=== PATIENT | female | born 1955 | race Caucasian/White ===

== ENCOUNTER → 2016-05-26 | Outpatient (CLI) | payer BC ==
[~2016-05-26] MED LIST: CLTP PO; MULT-506 PO; TAMO20TA9 PO
--- NOTE | 2016-05-26 10:37 | DIAGNOSTIC IMAGING REPORT ---
L-SPINE MIN 4 VIEWS ROUTINE CLINICAL HISTORY: LOW BACK PAIN COMPARISON STUDY: No previous studies for comparison. FINDINGS: There is a mild lumbar dextroscoliosis. There are 5 lumbar type vertebral bodies present. No fractures or subluxations are visualized. There is mild lower lumbar disc space narrowing. IMPRESSION: Mild degenerative change. Mild scoliosis. No acute fractures identified. Electronically signed by: Brenton Lee M.D. 05/26/2016 10:34 AM Dictated Date/Time: 05/26/2016 10:34 AM
--- NOTE | 2016-05-26 10:37 | DIAGNOSTIC IMAGING REPORT ---
SACRUM COCCYX MIN 2 VIEWS CLINICAL HISTORY: LOW BACK PAIN COMPARISON STUDY: No previous studies for comparison. FINDINGS: No fractures are visualized. There is no evidence for SI joint erosive disease. There is no SI joint fusion. IMPRESSION: No fractures identified. Electronically signed by: Brenton Lee M.D. 05/26/2016 10:35 AM Dictated Date/Time: 05/26/2016 10:34 AM
--- NOTE | 2016-05-26 10:38 | DIAGNOSTIC IMAGING REPORT ---
LEFT HIP UNILATERAL 2 VIEWS CLINICAL HISTORY: Left hip pain COMPARISON: None. DISCUSSION: No fractures or dislocations are visualized. There are no erosive or destructive changes. There is a left pelvic basin calcification which while nonspecific likely represents a phlebolith. IMPRESSION: Normal left hip for age. Electronically signed by: Brenton Lee M.D. 05/26/2016 10:36 AM Dictated Date/Time: 05/26/2016 10:35 AM
== END | disposition home or self-care (01) ==
LOC: C.RADBC 09:55
PROVIDERS: ATTEND Physician Assistant
DX: M54.5 Low back pain (principal); M25.552 Pain in left hip; M51.36 Other intervertebral disc degeneration, lumbar region; M41.9 Scoliosis, unspecified

== ENCOUNTER → 2017-01-09 | Outpatient (CLI) | payer BC ==
[2017-01-09 17:46] LABS: ALT/SGPT 36 U/L (12-78); AST/SGOT 23 U/L (15-37); BLOOD UREA NITROGEN 15 mg/dl (7-18); BUN/CREATININE RATIO 21.3 (10-20); CALCIUM 8.8 mg/dl (8.5-10.1); CARBON DIOXIDE 27 mmol/L (21-32); CHLORIDE 108 mmol/L (98-107); CREATININE 0.71 mg/dl (0.60-1.20); GLUCOSE 92 mg/dl (70-99); SODIUM 140 mmol/L (136-145)
[2017-01-09 17:48] LABS: ALB/GLOB RATIO 0.9 (0.9-2); ALKALINE PHOSPHATASE 92 U/L (45-117)
== END | disposition home or self-care (01) ==
LOC: C.LABBFT 14:54
PROVIDERS: ATTEND Physician Assistant
DX: R00.2 Palpitations (principal)

== ENCOUNTER → 2017-01-10 | Outpatient (CLI) | payer BC ==
[~2017-01-10] MED LIST changes: +GADAVIST IV PRN
--- NOTE | 2017-01-10 12:34 | DIAGNOSTIC IMAGING REPORT ---
LUMBAR SPINE COMBINATION CLINICAL HISTORY: 61 years-old Female with LOW BACK PAIN. Acute low back pain with radiation into the left leg. Associated numbness and tingling. History of breast cancer. Fall greater than 6 months ago COMPARISON: Sacrum and coccyx radiographs 05/26/2016, lumbar spine radiographs 05/26/2016 TECHNIQUE: Multiplanar, multi sequence MRI of the lumbar spine was performed both with and without the use of 7 mL Gadavist FINDINGS: The large [id number] vp integrity localizer images demonstrate an enhancing heterogeneous T2 hyperintense lesion within the central uterus with distention of the endometrial cavity measuring up to 3.9 x 2.2 cm as seen on image 4 series 8. No acute intra-abdominal or paraspinal abnormality identified. No aortic aneurysm or adenopathy identified on these images. There is mild bone marrow edema noted involving the right pedicle and facets on the right at L4-L5. Alignment is satisfactory. T12-L1: No central canal or neural foraminal stenosis. L1-L2: Mild intervertebral disc space narrowing with mild spondylitic spurring and facet arthrosis. No central canal or foraminal narrowing. L2-L3: Mild intervertebral disc space narrowing with posterior spondylitic spurring, ligamentum flavum thickening and mild to moderate facet arthrosis. Circumferential annular disc bulge is also noted. There is mild central canal and mild bilateral inferior foraminal narrowing. L3-L4: Moderate intervertebral disc space narrowing with posterior spondylitic spurring, circumferential annular disc bulge, ligamentum flavum thickening, moderate left and mild right facet arthrosis. AP dimension of the thecal sac is narrowed to 8 mm resulting in mild to moderate central canal and mild bilateral foraminal stenosis L4-L5: Moderate intervertebral disc space narrowing with mild posterior spondylitic spurring, ligament of flavum thickening and moderate bilateral facet arthrosis. Circumferential annular disc bulge is noted in conjunction with a large broad-based central disc protrusion which measures up to 1.6 x 0.6 cm in AP and transverse dimension. There is mild peripheral enhancement surrounding the disc protrusion as seen on image 19 series 9. Thecal sac is narrowed to 5 mm in AP dimension resulting in severe central canal, and moderate right foraminal narrowing. No significant left foraminal stenosis. L5-S1: Mild intervertebral disc space narrowing and spondylitic spurring without significant central canal or foraminal narrowing. IMPRESSION: 1. Heterogeneously enhancing mass of the central uterus distends the endometrial cavity measuring up to 3.9 cm and is very suspicious for endometrial carcinoma. Correlation with gynecologic consultation and tissue sampling recommended. 2. At L4-L5 there is moderate intervertebral disc space narrowing with posterior spondylitic spurring, ligamentum flavum thickening and moderate bilateral facet arthrosis with circumferential annular disc bulge and large central broad-based disc protrusion which causes severe central canal and moderate right foraminal narrowing. 3. Moderate intervertebral disc space narrowing with posterior spondylitic spurring, ligamentum flavum thickening and facet arthrosis at L3-L4 causes mild to moderate central canal narrowing. 4. Mild central canal stenosis at L2-L3. The above report was generated using voice recognition software. It may contain grammatical, syntax or spelling errors. Electronically signed by: Sha Sloan M.D. 01/10/2017 12:33 PM Dictated Date/Time: 01/10/2017 11:28 AM
== END | disposition home or self-care (01) ==
LOC: C.MRIBC 10:28
PROVIDERS: ATTEND Physician Assistant
DX: M48.061 Spinal stenosis, lumbar region without neurogenic claudication (principal); N85.8 Other specified noninflammatory disorders of uterus

== ENCOUNTER → 2017-01-11 | Outpatient (CLI) | payer BC ==
[~2017-01-11] MED LIST changes: -GADAVIST IV PRN
--- NOTE | 2017-01-11 11:09 | DIAGNOSTIC IMAGING REPORT ---
PELVIC COMPLETE NON OB CLINICAL HISTORY: R93.8 Abnormal [id number] ABNORMAL MRI COMPARISON STUDY: MRI 01/10/2017 FINDINGS: The uterus measured 10.0 cm.. The endometrial stripe measured complex endometrium with rather significant thickening to 5 cm. Superior to represent the MRI finding of a potential endometrial masslike process.. The right ovary measured not well seen possibly secondary atrophic change. The left ovary measured not well seen possibly secondary to atrophic change. There is no ultrasonographic evidence of ovarian torsion. It should be noted that ovarian torsion can be present with normal Doppler ultrasonographic findings. There was no evidence of pathologic free pelvic fluid. IMPRESSION: 1. Endometrial thickening to 5 cm most likely representing endometrial hyperplasia/neoplasia versus the MRI findings of endometrial neoplasm. 2. Ultrasound does not differentiate between thickened endometrium and potential masslike lesion. Nevertheless, mass lesion is not excluded. 3. BROADCAST METEOROLOGIST follow-up is recommended to exclude a neoplastic process. The above report was generated using voice recognition software. It may contain grammatical, syntax or spelling errors. Electronically signed by: Omega Douglas M.D. 01/11/2017 11:07 AM Dictated Date/Time: 01/11/2017 11:05 AM
== END | disposition home or self-care (01) ==
LOC: C.ULTRBC 09:53
PROVIDERS: ATTEND Physician Assistant
DX: R93.8 Abnormal findings on diagnostic imaging of other specified body structures (principal)

== ENCOUNTER → 2017-01-12 | Outpatient (CLI) | payer BC ==
[~2017-01-12] MED LIST changes: -MULT-506 PO
== END | disposition home or self-care (01) ==
LOC: C.PATHSPEC 11:37
PROVIDERS: ATTEND Obstetrics & Gynecology
DX: R93.8 Abnormal findings on diagnostic imaging of other specified body structures (principal); Z79.810 Long term (current) use of selective estrogen receptor modulators (SERMs)

== ENCOUNTER → 2017-02-19 | Outpatient (CLI) | payer BC ==
[~2017-02-19] MED LIST changes: +CALC500C70 PO; -CLTP PO; +GABA-112 PO
[2017-02-19 12:15] LABS: HEMATOCRIT 43.7 % (37-47); HEMOGLOBIN 14.5 g/dL (12.0-16.0); MEAN CELL VOLUME 97.1 fL (80-100); MEAN CORPUSCULAR HEMOGLOBIN 32.2 pg (25-34); MEAN CORPUSCULAR HGB CONC 33.2 g/dl (32-36); MEAN PLATELET VOLUME 10.2 fL (7.4-10.4); PLATELET COUNT 217 K/uL (130-400); RED CELL DISTRIBUTION WIDTH CV 13.1 % (11.5-14.5); RED CELL DISTRIBUTION WIDTH SD 46.1 fL (36.4-46.3); WHITE BLOOD COUNT 8.31 K/uL (4.8-10.8)
== END | disposition home or self-care (01) ==
LOC: C.LAB1850 11:01
PROVIDERS: ATTEND Obstetrics & Gynecology
DX: R93.8 Abnormal findings on diagnostic imaging of other specified body structures (principal)

== ENCOUNTER → 2017-02-21 | Day surgery (SDC) | payer BC ==
[2017-01-19 10:34] VITALS: Ht 157.5 cm; Wt 72.0 kg
[~2017-02-21] VITALS: Ht 157.5 cm; Wt 72.0 kg
[~2017-02-21] MED LIST changes: +ATROPINE SULFATE 0.1 MG/ML 5ML SYR IV PRN; +DEXAMETHASONE SOD INJ 4 MG/ML VIAL ONE; +EpHEDrine SULFATE INJ 50 MG/ML AMP IV PRN; +FENTANYL CITRATE INJ 50 MCG/1 ML 2 ML VIAL IV PRN; +FENTANYL CITRATE INJ 50 MCG/1 ML 2 ML VIAL ONE; +IBUPROFEN 600 MG TAB PO PRN; +KETOROLAC TROMETHAMINE 30 MG/ML VIAL IV. PRN; +LACTATED RINGER'S 1000ML 1,000 ML IV SCH; +LIDOCAINE HCL 2% 2 ML VIAL (20MG/ML) ONE; +MIDAZOLAM HCL 1 MG/ML 2ML VIAL ONE; +ONDANSETRON INJ 2 MG/ML 2 ML VIAL IV PRN; +ONDANSETRON INJ 2 MG/ML 2 ML VIAL ONE; +OXYCODONE/ACETAMINOPHEN 5-325 TAB PO PRN; +PROPOFOL IV EMULSION 10 MG/ML 20 ML VIAL IV ONE; +SODIUM CHLORIDE 0.9% 1000ML 1,000 ML IV SCH
--- NOTE | 2017-02-21 12:52 | History & Physical Bridge - [place] ---
H&P Re-Evaluation Bridge Note: I have examined the patient, reviewed the History & Physical and in the interval since the performance of the History & Physical I have noted the following changes of clinical significance: No changes noted
--- NOTE | 2017-02-21 13:42 | [facility] Post Operative Brief Note ---
Immediate Operative Summary Operative Date Feb 21, 2017. Pre-Operative Diagnosis Thickened Endometrium, Use of tamoxifen Post-Operative Diagnosis Same Procedure(s) Performed Dilatation And Curettage, Hysteroscopy, Polypectomy, Myosure Surgeon Dr. Leonides Ren Tool Design Checker Surgeon(s) None Estimated Blood Loss 1 mL Findings uterus sounds to 9-10cm. cavity with at least one obvious polyp, possible areas of calcifications, possible myoma. left tubal ostia possible seen. right tubal ostia obscured. saline fluid deficit 515cc. large sample in myosure sock, minimal curettings. Fluids (cc crystalloids) 600 Specimens A. Endometrial Curettings and Polyp Drains none Anesthesia general Complication(s) None Disposition Recovery Room / PACU
--- NOTE | 2017-02-21 13:44 | Discharge Instructions ---
Discharge Instructions Date of Service Feb 21, 2017. Admission Reason for Admission: Thickened Endometrium Discharge Discharge Diagnosis / Problem: after srugery Discharge Goals Goal(s): Routine recovery after surgery Activity Recommendations Activity Limitations: as noted below . Instructions / Follow-Up Instructions / Follow-Up ACTIVITY RECOMMENDATIONS: * Avoid tampons, douching, hot tubs, pools, and intercourse until bleeding has stopped. * May shower as usual. * No strenuous activity for 24-48 hours. After 24-48 hours, you may do anything you feel like doing (driving and sports are okay). SPECIAL CARE INSTRUCTIONS: Special Diet: * Mild nausea may occur in the immediate post-operative period. * Take clear liquids such as tea, cola or bouillon until all nausea has subsided; you may then resume your normal diet. Special Care: * Light bleeding and vaginal spotting can last from a few days to 3-4 weeks. Call your doctor if bleeding becomes heavier than the heaviest part of your period. * Check your temperature twice a day for one week. If it goes above 100.4 degrees Fahrenheit (38.0 Celsius), notify your doctor. * Call your doctor's office for an appointment for 2-4 weeks after your surgery. FOLLOW-UP VISIT: Call your doctor's office for an appointment for 2-4 weeks after your surgery. Current Hospital Diet Patient's current hospital diet: Discharge Diet Recommended Diet: Regular Diet Procedures Procedures Performed: Dilatation And Curettage, Hysteroscopy, Polypectomy, Myosure Pending Studies Studies pending at discharge: yes List of pending studies: pathology Medical Emergencies . Who to Call and When: Medical Emergencies: If at any time you feel your situation is an emergency, please call 911 immediately. . Non-Emergent Contact Non-Emergency issues call your: [employer] . . "Provider Documentation" section prepared by Kimberly Ren. . VTE Core Measure Inpt VTE Proph given/why not?: Treatment not indicated
--- NOTE | 2017-02-21 14:00 | [facility] Operative Report ---
Operative Report Operative Date Feb 21, 2017. Pre-Operative Diagnosis Thickened Endometrium, Use of tamoxifen Post-Operative Diagnosis Same Procedure(s) Performed Dilatation And Curettage, Hysteroscopy, Polypectomy, Myosure Surgeon Dr. Leonides Ren Key Account Representative Surgeon(s) None Estimated Blood Loss 1 mL Findings Uterus sounds to 9-10 cm. Cavity width at least one obvious polyp. Other areas appear calcified and possibly consistent with myomas. Left tubal ostia somewhat visible. The right tubal ostia obscured. Large sample within myosure sock. Minimal curettings. Saline hysteroscopic fluid deficit 515 cc. Fluids (cc crystalloids) 600 Specimens A. Endometrial Curettings and Polyp Drains none Anesthesia Gen. Complication(s) None Disposition Recovery Room / PACU Indications 61-year-old with history of breast cancer on tamoxifen who underwent an MRI for other reasons and incidental finding of thickened endometrium. She underwent an office endometrial biopsy that did show benign tissue however fragment of polyp suggested. She was counseled about further evaluation with D&C hysteroscopy and likely polypectomy. She presents for that today. Description of Procedure The patient was taken to the operating room and identified. After adequate general anesthesia was obtained she was placed in the dorsolithotomy position and prepped and draped in the usual sterile fashion. The bladder was drained under sterile conditions for clear yellow urine. A weighted speculum and anterior retractor were placed to visualize the cervix. The cervix was grasped on its anterior lip with an Allis clamp. The cervix was sequentially dilated using Hegar dilators to 23. The myosure hysteroscope was readied with saline media. It was gently placed through the cervical os into the uterine cavity with the findings as noted above. The myosure device was then used to clear the uterus of its contents. The hysteroscope was removed and the uterus was curettaged to a gritty consistency. All specimens were sent. Subsequent to removal of tissue, visualization within the cavity was poor. The diagnostic hysteroscope was used to visualize the cavity which again showed evidence of removal of the polyp that was previously seen and otherwise cavity consistent with atrophy. The hysteroscope was removed and the uterus was further cleared of its contents with a brief curettage to gritty consistency. Cavity seemed smooth with no evidence of remaining lesions. At this point the procedure was terminated. All instruments were removed. She was returned to the supine position and awoken from anesthesia. She was transferred to the recovery room in stable condition. Sponge lap and needle counts were correct 2. I attest to the content of the Intraoperative Record and any orders documented therein. Any exceptions are noted below.
[2017-02-21 14:23] VITALS: TEMP 36.7
[2017-02-21 14:50] VITALS: BP 131/84; PULSE 72; O2SAT 97
--- NOTE | 2017-02-21 14:53 | Anesthesia Progress Nt - [facility] ---
Anesthesia Post Op Note Date & Time Feb 21, 2017 at 14:53 Vital Signs Pain Intensity: 0 Vital Signs Past 12 Hours Date Time Temp Pulse Resp B/P (MAP) Pulse Ox O2 Delivery O2 Flow Rate FiO2 02/21/17 14:50 72 18 131/84 (100) 97 Room Air 02/21/17 14:23 36.7 72 18 138/83 (101) 96 Room Air 02/21/17 14:16 71 27 02/21/17 14:16 72 27 95 02/21/17 14:15 124/77 02/21/17 14:15 37.1 77 16 124/77 95 Room Air 02/21/17 14:11 76 16 94 02/21/17 14:11 76 16 02/21/17 14:10 127/76 02/21/17 14:06 72 18 100 02/21/17 14:06 72 18 02/21/17 14:05 122/78 02/21/17 14:01 71 22 99 02/21/17 14:01 71 22 02/21/17 14:00 129/78 02/21/17 13:56 70 14 02/21/17 13:56 70 14 99 02/21/17 13:55 131/79 02/21/17 13:52 72 19 100 02/21/17 13:52 72 19 02/21/17 13:50 140/81 02/21/17 13:48 136/91 02/21/17 13:47 78 02/21/17 13:47 37.0 74 16 136/91 99 Diffusion Mask 6 02/21/17 13:47 78 96 02/21/17 11:48 36.9 97 18 144/90 (108) 95 Room Air Notes Mental Status: alert / awake / arousable, participated in evaluation Pt Amnestic to Procedure: Yes Nausea / Vomiting: adequately controlled Pain: adequately controlled Airway Patency, RR, SpO2: stable & adequate BP & HR: stable & adequate Hydration State: stable & adequate Anesthetic Complications: no major complications apparent
== END | disposition home or self-care (01) ==
LOC: X.SURG 11:11
PROVIDERS: ATTEND Obstetrics & Gynecology
DX: R93.8 Abnormal findings on diagnostic imaging of other specified body structures (principal); Z79.810 Long term (current) use of selective estrogen receptor modulators (SERMs); Z78.0 Asymptomatic menopausal state; Z98.51 Tubal ligation status; Z90.89 Acquired absence of other organs; Z85.3 Personal history of malignant neoplasm of breast; Z80.3 Family history of malignant neoplasm of breast

== ENCOUNTER → 2017-09-11 | Outpatient (CLI) | payer BC ==
[~2017-09-11] MED LIST changes: -ATROPINE SULFATE 0.1 MG/ML 5ML SYR IV PRN; -DEXAMETHASONE SOD INJ 4 MG/ML VIAL ONE; -EpHEDrine SULFATE INJ 50 MG/ML AMP IV PRN; -FENTANYL CITRATE INJ 50 MCG/1 ML 2 ML VIAL IV PRN; -FENTANYL CITRATE INJ 50 MCG/1 ML 2 ML VIAL ONE; -GABA-112 PO; -IBUPROFEN 600 MG TAB PO PRN; -KETOROLAC TROMETHAMINE 30 MG/ML VIAL IV. PRN; -LACTATED RINGER'S 1000ML 1,000 ML IV SCH; -LIDOCAINE HCL 2% 2 ML VIAL (20MG/ML) ONE; -MIDAZOLAM HCL 1 MG/ML 2ML VIAL ONE; -ONDANSETRON INJ 2 MG/ML 2 ML VIAL IV PRN; -ONDANSETRON INJ 2 MG/ML 2 ML VIAL ONE; -OXYCODONE/ACETAMINOPHEN 5-325 TAB PO PRN; -PROPOFOL IV EMULSION 10 MG/ML 20 ML VIAL IV ONE; -SODIUM CHLORIDE 0.9% 1000ML 1,000 ML IV SCH
== END | disposition home or self-care (01) ==
LOC: C.PAPS 13:43
PROVIDERS: ATTEND Obstetrics & Gynecology
DX: Z01.419 Encounter for gynecological examination (general) (routine) without abnormal findings (principal)